=== PATIENT | male | born 1980 | race Caucasian/White ===

== ENCOUNTER 2023-02-22 19:49 | Emergency (ER) | payer BC | END 2023-02-22 19:50 | disposition left against medical advice (07) | LOC: MW.ED 19:49 | DX: Z53.21 Procedure and treatment not carried out due to patient leaving prior to being seen by health care provider (principal) ==

== ENCOUNTER 2025-02-14 10:59 | Emergency (ER) | payer BC | END 2025-02-14 12:15 | LOC: MW.ED 10:59 | DX: I10 Essential (primary) hypertension (principal); J45.909 Unspecified asthma, uncomplicated; F17.200 Nicotine dependence, unspecified, uncomplicated | CPT/HCPCS: 99283 ==